=== PATIENT | female | born 1975 | race Two or more races ===

== ENCOUNTER 2016-07-17 14:09 | Emergency (ER) | payer OTHER ==
[~2016-07-17] VITALS: Ht 165.1 cm; Wt 73.0 kg
[2016-07-17 16:15] VITALS: BP 135/77
[2016-07-17] MEDS ORDERED: OxyCODONE HCL/ACETAMINOPHEN 5-325 MG TABLET PO ONE (16:15)
== END 2016-07-17 17:40 | disposition home or self-care (01) ==
LOC: EMS 14:14
DX: S82.102A Unspecified fracture of upper end of left tibia, initial encounter for closed fracture (principal); W10.8XXA Fall (on) (from) other stairs and steps, initial encounter; Y93.01 Activity, walking, marching and hiking; Y92.89 Other specified places as the place of occurrence of the external cause; Y99.8 Other external cause status
CPT/HCPCS: 99284